=== PATIENT | male | born 1980 | race Caucasian/White ===

== ENCOUNTER 2020-12-31 20:39 | Emergency (ER) | payer OTHER ==
[~2020-12-31] VITALS: Ht 182.9 cm; Wt 90.7 kg
[~2020-12-31 20:39] MED LIST: BACTRIM DS TAB1 EACH PO; NOHOMEMEDICATIONS; NORCO 5-325 TA1 EACH PO
[2020-12-31 21:48] LABS: CALCIUM 9.2 mg/dL (8.5-10.1); CREATININE 1.1 mg/dL (0.6-1.3); POTASSIUM 3.7 mmol/L (3.5-5.1)
[2020-12-31 21:49] LABS: HEMATOCRIT 46.5 % (42.0-52.0); HEMOGLOBIN 15.8 gm/dL (14.0-18.0); MCH 30.1 pg (26.0-34.0); MCV 88.5 fL (80.0-100.0); MPV 8.1 fl. (7.2-11.1); NUCLEATED RBCS 0 /100WBC; RBC 5.25 mil/uL (4.50-6.00); RDW-CV 13.2 % (10.5-14.5); WBC 9.2 thou/uL (4.0-11.0)
[2020-12-31 21:59] LABS: ALBUMIN 3.9 g/dL (3.4-5.0); TOTAL BILIRUBIN 0.5 mg/dL (<0.1-1.0); TOTAL PROTEIN 7.5 g/dL (6.4-8.2)
[2020-12-31 22:22] LABS: PLATELET COUNT* 260 thou/uL (150-400)
[2020-12-31 22:31] LABS: ABSOLUTE EOSINOPHILS 0.2 thou/uL (0.0-0.7); ABSOLUTE LYMPHOCYTES 3.2 thou/uL (0.8-5.3); ABSOLUTE NEUTROPHILS 4.8 thou/uL (1.6-8.1); ATYPICAL LYMPHS 1 %; LARGE PLATELETS RARE; PLATELET ESTIMATE ADEQUATE
[2020-12-31 22:32] LABS: CLUMPED PLTS RARE
[2020-12-31] MEDS ORDERED: MOBIC15 MG PO (22:47)
[2020-12-31] MEDS ORDERED: CYCLOBENZAPRINE5 MG PO (22:47)
[2020-12-31] MEDS ORDERED: ACETAMINOPHEN-1 EAC2 PO (22:47)
[2020-12-31 22:59] VITALS: BP 124/85
--- NOTE | 2021-01-01 10:39 | EKG ---
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
== END 2020-12-31 23:00 | disposition home or self-care (01) ==
LOC: M.ERS 20:39
PROVIDERS: Nurse Practitioner Family
DX: S39.012A Strain of muscle, fascia and tendon of lower back, initial encounter (principal); S29.012A Strain of muscle and tendon of back wall of thorax, initial encounter; S09.8XXA Other specified injuries of head, initial encounter; J98.8 Other specified respiratory disorders; Z20.828 Contact with and (suspected) exposure to other viral communicable diseases; Z88.8 Allergy status to other drugs, medicaments and biological substances; X58.XXXA Exposure to other specified factors, initial encounter; Y93.89 Activity, other specified; Y92.89 Other specified places as the place of occurrence of the external cause; Y99.8 Other external cause status; Z90.49 Acquired absence of other specified parts of digestive tract

== ENCOUNTER 2021-08-11 15:36 | Emergency (ER) | payer OTHER ==
[~2021-08-11] VITALS: Ht 182.9 cm; Wt 83.9 kg
[~2021-08-11 15:36] MED LIST changes: +ACETAMINOPHEN-1 EAC2 PO; +CYCLOBENZAPRINE5 MG PO; +MOBIC15 MG PO
[2021-08-11 16:35] LABS: URINE BILIRUBIN NEGATIVE (Negative); URINE BLOOD 2+ (Negative); URINE CLARITY CLEAR; URINE COLOR YELLOW; URINE GLUCOSE-RANDOM NEGATIVE (Negative); URINE KETONES NEGATIVE (Negative); URINE LEUKOCYTES-REFLEX NEGATIVE (Negative); URINE NITRITE-REFLEX NEGATIVE (Negative); URINE PROTEIN NEGATIVE (Negative); URINE UROBILINOGEN 0.2 E.U./dl (0.2-1.0)
[2021-08-11 16:44] LABS: BACTERIA-REFLEX 1-9 Few /HPF (None Seen); CASTS None Seen /LPF (None Seen); CRYSTALS None Seen /LPF (None Seen); SQUAMOUS 0-3 Few /LPF (0-3); URINE RBC 0-2 Rare /HPF (0-2); URINE WBC-REFLEX 0-5 Rare /HPF (0-5)
[2021-08-11 17:22] LABS: ABSOLUTE BASOPHILS 0.1 thou/uL (0.0-0.2); ABSOLUTE EOSINOPHILS 0.2 thou/uL (0.0-0.7); ABSOLUTE LYMPHOCYTES 0.6 thou/uL (0.8-5.3); ABSOLUTE MONOCYTES 0.5 thou/uL (0.0-1.2); ABSOLUTE NEUTROPHILS 4.4 thou/uL (1.6-8.1); BASOPHILS 0.9 %; EOSINOPHILS 2.7 %; HEMATOCRIT 40.8 % (42.0-52.0); LYMPHOCYTES 11.2 %; MCH 30.9 pg (26.0-34.0); MCHC 34.4 g/dL (28.0-37.0); MCV 89.9 fL (80.0-100.0); MONOCYTES 9.4 %; MPV 7.4 fl. (7.2-11.1); NUCLEATED RBCS 0 /100WBC; PLATELET COUNT* 218 thou/uL (150-400); POLYS 75.8 %; RBC 4.54 mil/uL (4.50-6.00); RDW-CV 14.4 % (10.5-14.5); WBC 5.8 thou/uL (4.0-11.0)
[2021-08-11 17:33] LABS: CREATININE 1.1 mg/dL (0.6-1.3); POTASSIUM 3.3 mmol/L (3.5-5.1)
[2021-08-11 17:37] LABS: TOTAL BILIRUBIN 0.4 mg/dL (<0.1-1.0); TOTAL PROTEIN 7.8 g/dL (6.4-8.2)
[2021-08-11] MEDS ORDERED: ZOFRAN ODT4 MG PO (20:02)
[2021-08-11] MEDS ORDERED: CIPRO500 M1 PO (20:02)
[2021-08-11] MEDS ORDERED: IBUPROFEN 800800 M1 PO (20:02)
[2021-08-11] MEDS ORDERED: HYDROCODON-ACE1 EAC7 PO (20:15)
[2021-08-11 20:33] VITALS: BP 127/64
--- NOTE | 2021-08-12 09:47 | EKG ---
[place] [address] ELECTROCARDIOGRAM REPORT Name: JAMEEL KILLIAN Room: 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1980 Requested By: Paulina Malhotra Order Number: [id number] MD: Robby Esteban Measurements Intervals [place] Rate: 98 P: 40 [place]: 154 QRS: 50 QRSD: 89 T: 50 QT: 305 QTc: 390 Interpretive Statements Sinus rhythm Left atrial enlargement RSR' in V1 or V2, probably normal variant Compared to ECG 12/31/2020 21:42:23 Atrial abnormality now present RSR' in V1 or V2 now present Electronically Signed On 08-12-2021 9:47:43 CDT by Robby Esteban [email or web address] <ELECTRONICALLY SIGNED> By: Robby Esteban MD, [facility] 08/12/21 0947 99 99 Robby Esteban MD, [facility] /EPI
== END 2021-08-11 20:34 | disposition home or self-care (01) ==
LOC: M.ERS 15:36
PROVIDERS: Family Medicine; Nurse Practitioner Family
DX: N39.0 Urinary tract infection, site not specified (principal); Z20.822 Contact with and (suspected) exposure to COVID-19; R10.84 Generalized abdominal pain; F17.210 Nicotine dependence, cigarettes, uncomplicated; Z90.49 Acquired absence of other specified parts of digestive tract; Z91.048 Other nonmedicinal substance allergy status

== ENCOUNTER 2021-08-26 16:48 | Emergency (ER) | payer OTHER ==
[~2021-08-26] VITALS: Ht 182.9 cm; Wt 86.2 kg
[~2021-08-26 16:48] MED LIST changes: +CIPRO500 M1 PO; +HYDROCODON-ACE1 EAC7 PO; +IBUPROFEN 800800 M1 PO; +ZOFRAN ODT4 MG PO
[2021-08-26 17:38] LABS: URINE BILIRUBIN NEGATIVE (Negative); URINE BLOOD 2+ (Negative); URINE CLARITY CLEAR; URINE COLOR YELLOW; URINE GLUCOSE-RANDOM NEGATIVE (Negative); URINE KETONES NEGATIVE (Negative); URINE LEUKOCYTES-REFLEX NEGATIVE (Negative); URINE NITRITE-REFLEX NEGATIVE (Negative); URINE PROTEIN NEGATIVE (Negative); URINE UROBILINOGEN 0.2 E.U./dl (0.2-1.0)
[2021-08-26 17:44] LABS: ABSOLUTE BASOPHILS 0.1 thou/uL (0.0-0.2); ABSOLUTE EOSINOPHILS 0.2 thou/uL (0.0-0.7); ABSOLUTE LYMPHOCYTES 2.6 thou/uL (0.8-5.3); ABSOLUTE NEUTROPHILS 7.9 thou/uL (1.6-8.1); BASOPHILS 0.6 %; EOSINOPHILS 1.9 %; HEMATOCRIT 47.2 % (42.0-52.0); LYMPHOCYTES 22.1 %; MCH 30.4 pg (26.0-34.0); MCHC 33.8 g/dL (28.0-37.0); MCV 89.8 fL (80.0-100.0); MONOCYTES 8.3 %; MPV 7.3 fl. (7.2-11.1); NUCLEATED RBCS 0 /100WBC; PLATELET COUNT* 405 thou/uL (150-400); POLYS 67.1 %; RBC 5.26 mil/uL (4.50-6.00); RDW-CV 14.3 % (10.5-14.5); WBC 11.8 thou/uL (4.0-11.0)
[2021-08-26 17:52] LABS: BACTERIA-REFLEX 1-9 Few /HPF (None Seen); CASTS None Seen /LPF (None Seen); CRYSTALS None Seen /LPF (None Seen); SQUAMOUS 0-3 Few /LPF (0-3); URINE RBC 3-10 Few /HPF (0-2); URINE WBC-REFLEX 0-5 Rare /HPF (0-5)
[2021-08-26 17:53] LABS: CALCIUM 9.2 mg/dL (8.5-10.1); CREATININE 1.1 mg/dL (0.6-1.3); POTASSIUM 4.1 mmol/L (3.5-5.1)
[2021-08-26 17:58] LABS: ALBUMIN 4.1 g/dL (3.4-5.0); TOTAL BILIRUBIN 0.4 mg/dL (<0.1-1.0); TOTAL PROTEIN 8.8 g/dL (6.4-8.2)
[2021-08-26] MEDS ORDERED: MEDROLDOSEPACK PO (18:08)
[2021-08-26] MEDS ORDERED: FLEXERIL PO (18:08)
[2021-08-26] MEDS ORDERED: HYDROCODON-ACE1 EAC7 PO (18:14)
[2021-08-26 18:34] VITALS: BP 155/83
== END 2021-08-26 18:37 | disposition home or self-care (01) ==
LOC: M.ERS 16:48
PROVIDERS: Nurse Practitioner Family
DX: S39.012A Strain of muscle, fascia and tendon of lower back, initial encounter (principal); K52.9 Noninfective gastroenteritis and colitis, unspecified; F17.200 Nicotine dependence, unspecified, uncomplicated; Z79.891 Long term (current) use of opiate analgesic; Z79.1 Long term (current) use of non-steroidal anti-inflammatories (NSAID); Z79.899 Other long term (current) drug therapy; Z91.09 Other allergy status, other than to drugs and biological substances

== ENCOUNTER 2021-09-13 14:59 | Emergency (ER) | payer OTHER ==
[~2021-09-13] VITALS: Ht 182.9 cm; Wt 90.7 kg
[~2021-09-13 14:59] MED LIST changes: +FLEXERIL PO; +MEDROLDOSEPACK PO
[2021-09-13] MEDS ORDERED: AMOXICILLIN 50500 MG PO (15:09)
[2021-09-13] MEDS ORDERED: RAYOS5 MG PO (15:09)
[2021-09-13 15:21] LABS: HEMATOCRIT 41.4 % (42.0-52.0); HEMOGLOBIN 13.8 gm/dL (14.0-18.0); MCH 30.1 pg (26.0-34.0); MCHC 33.3 g/dL (28.0-37.0); MCV 90.4 fL (80.0-100.0); MPV 6.7 fl. (7.2-11.1); NUCLEATED RBCS 0 /100WBC; PLATELET COUNT* 567 thou/uL (150-400); RBC 4.59 mil/uL (4.50-6.00); RDW-CV 13.7 % (10.5-14.5); WBC 12.4 thou/uL (4.0-11.0)
[2021-09-13 15:30] LABS: CALCIUM 8.7 mg/dL (8.5-10.1); CREATININE 1.1 mg/dL (0.6-1.3); POTASSIUM 3.4 mmol/L (3.5-5.1)
[2021-09-13 15:40] LABS: ALBUMIN 2.6 g/dL (3.4-5.0); TOTAL BILIRUBIN 0.3 mg/dL (<0.1-1.0); TOTAL PROTEIN 7.9 g/dL (6.4-8.2)
[2021-09-13 15:58] LABS: ABSOLUTE EOSINOPHILS 1.7 thou/uL (0.0-0.7); ABSOLUTE LYMPHOCYTES 3.3 thou/uL (0.8-5.3); ABSOLUTE MONOCYTES 0.7 thou/uL (0.0-1.2); ABSOLUTE NEUTROPHILS 6.6 thou/uL (1.6-8.1); PLATELET ESTIMATE INCREASED
[2021-09-13 16:02] LABS: URINE BILIRUBIN NEGATIVE (Negative); URINE BLOOD 2+ (Negative); URINE CLARITY CLEAR; URINE COLOR YELLOW; URINE GLUCOSE-RANDOM NEGATIVE (Negative); URINE KETONES NEGATIVE (Negative); URINE LEUKOCYTES NEGATIVE (Negative); URINE NITRITE NEGATIVE (Negative); URINE PROTEIN NEGATIVE (Negative); URINE SPECIFIC GRAVITY 1.025 (1.005-1.030); URINE UROBILINOGEN 0.2 E.U./dl (0.2-1.0)
[2021-09-13 16:10] LABS: MUCUS None Seen strn/LPF (None Seen); SQUAMOUS NONE SEEN /LPF (0-3)
[2021-09-13 16:11] LABS: BACTERIA None Seen /HPF (None Seen); CASTS None Seen /LPF (None Seen); CRYSTALS None Seen /LPF (None Seen); URINE RBC 3-10 Few /HPF (0-2); URINE WBC None Seen /HPF (0-5)
[2021-09-13] MEDS ORDERED: FLEXERIL PO (17:37)
[2021-09-13] MEDS ORDERED: TESSALON PERLE100 M1 PO (17:37)
[2021-09-13] MEDS ORDERED: LEVOFLOXACIN750 MG PO (17:37)
[2021-09-13 17:56] VITALS: BP 133/77
--- NOTE | 2021-09-14 10:22 | EKG ---
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1980 Requested By: Silverio Cortez Order Number: [id number] MD: Robby Esteban Measurements Intervals [place] Rate: 96 P: 39 [place]: 153 QRS: 53 QRSD: 80 T: 31 QT: 269 QTc: 340 Interpretive Statements Sinus rhythm artifact noted Probable left atrial enlargement Borderline T wave abnormalities Baseline wander in lead(s) III,aVF Compared to ECG 08/11/2021 17:00:33 T-wave abnormality now present Electronically Signed On 09-14-2021 10:22:04 CDT by Robby Esteban [email or web address] <ELECTRONICALLY SIGNED> By: Robby Esteban MD, FACC 09/14/21 1022 1504 1504 Robby Esteban MD, FAC /EPI
== END 2021-09-13 17:56 | disposition home or self-care (01) ==
LOC: M.ERS 14:59
PROVIDERS: Physician Assistant
DX: J18.9 Pneumonia, unspecified organism (principal); R07.81 Pleurodynia; R10.9 Unspecified abdominal pain; F17.210 Nicotine dependence, cigarettes, uncomplicated; Z90.49 Acquired absence of other specified parts of digestive tract; Z79.2 Long term (current) use of antibiotics; Z79.899 Other long term (current) drug therapy; Z91.048 Other nonmedicinal substance allergy status